=== PATIENT | female | born 1960 | race Caucasian/White ===

== ENCOUNTER → 2022-07-02 | Day surgery (SDC) | payer MEDICARE ==
[~2022-07-02] MED LIST: ASPIRIN81 MG PO; ATORVASTATIN CA10 MG PO; EPHEDRINE SULFATE INJ 50 MG/ML VIAL ONE; JARDIANCE10 MG PO; LATANOPROST2.5 ML OP; METHIMAZOLE5 MG PO; METOPROLOL SUCC25 MG PO; PHENYLEPHRINE HCL 1% 10 MG/ML VIAL ONE; PROPOFOL IV EMULSION 10 MG/ML 20 ML VIAL ONE; RENVELA0.8 GM PO; SELENIUM200 MCG PO; SODIUM CHLORIDE 0.9% 500ML 500 ML ONE; SYNTHROID50 MCG PO; VIT D PO
[2022-07-02 07:07] LABS: BASOPHILS # (AUTO) 0.1 (0.0-0.1); BASOPHILS % 1.3 % (0.0-1.0); EOSINOPHILS # (AUTO) 0.1 (0.0-0.4); EOSINOPHILS % 2.1 % (0.0-6.0); HEMATOCRIT 39.8 % (34.2-44.1); HEMOGLOBIN 12.6 g/dL (12.0-16.0); LYMPHOCYTES # (AUTO) 1.3 (1.0-3.2); LYMPHOCYTES % 20.9 % (18.0-39.1); MEAN CORPUSCULAR HEMOGLOBIN 31.1 pg (28-32); MEAN CORPUSCULAR HGB CONC 31.7 g/dL (31-35); MEAN CORPUSCULAR VOLUME 98.3 fL (81-99); MONOCYTES # (AUTO) 0.7 (0.2-0.8); NEUTROPHILS # (AUTO) 3.9 (2.1-6.9); NEUTROPHILS % 64.5 % (38.7-80.0); PLATELET COUNT 230 x10e3/uL (140-360); RED BLOOD COUNT 4.05 x10e6/uL (3.6-5.1)
[2022-07-02 07:17] LABS: INR 1.08; PROTHROMBIN TIME 14.2 seconds (11.9-14.5)
[2022-07-02 07:18] LABS: PARTIAL THROMBOPLASTIN TIME 32.1 seconds (23.8-35.5)
[2022-07-02 07:46] LABS: ANION GAP 21.8 mmol/L (8-16); CALCIUM 9.2 mg/dL (8.4-10.2); CREATININE, SERUM 4.96 mg/dL (0.57-1.11); POTASSIUM 4.8 mmol/L (3.5-5.1)
[2022-07-02 09:12] VITALS: BP 132/62
== END | disposition home or self-care (01) ==
LOC: OR 07:08
PROVIDERS: ATTEND Internal Medicine Gastroenterology
DX: Z09 Encounter for follow-up examination after completed treatment for conditions other than malignant neoplasm (principal); D12.2 Benign neoplasm of ascending colon; K64.8 Other hemorrhoids; E11.22 Type 2 diabetes mellitus with diabetic chronic kidney disease; I12.0 Hypertensive chronic kidney disease with stage 5 chronic kidney disease or end stage renal disease; N18.6 End stage renal disease; I69.398 Other sequelae of cerebral infarction; R53.1 Weakness; E07.9 Disorder of thyroid, unspecified; Z01.810 Encounter for preprocedural cardiovascular examination; Z79.82 Long term (current) use of aspirin; Z79.84 Long term (current) use of oral hypoglycemic drugs; Z79.899 Other long term (current) drug therapy; Z99.2 Dependence on renal dialysis; Z68.29 Body mass index [BMI] 29.0-29.9, adult; Z87.891 Personal history of nicotine dependence; Z80.0 Family history of malignant neoplasm of digestive organs
CPT/HCPCS: 36415; 45385; 80048; 82948; 85025; 85610; 85730; 88305; 93005; J2370; J2704; J7040; 45378